=== PATIENT | male | born 1965 | race African-American/Black ===

== ENCOUNTER 2018-06-11 12:18 | Day surgery (SDC) | payer BC ==
[~2018-06-11] VITALS: Ht 182.9 cm; Wt 101.2 kg
[~2018-06-11 12:18] MED LIST: AMLO10TA6 PO; AMLO5TAB7 PO; ASPI81TA50 PO; DOXA4TAB3 PO; ENAL20TA PO; HYDR-2869 PO; HYDR25TA9 PO; HYDROmorphone 2 MG/ML VIAL IV PRN; IOHEXOL 300 MG/ML 100ML VIAL. ONE; IV RINGERS,LACTATED 1000ML 1,000 ML IV SCH; LABE100T5 PO; LIDOCAINE 1% PF 2 ML VIAL. ID PRN; LIDOCAINE 2% JELLY 6ML IN APPLICATOR. ONE; MORPHINE SULFATE 2 MG/ML VIAL. IV PRN; ONDANSETRON PF 4 MG/2 ML VIAL. IV PRN; PROCHLORPERAZINE 10 MG/2 ML VIAL. IV PRN; SPIR25TA PO; fentaNYL PF VIAL 100 MCG/2 ML VIAL IV PRN
[2018-06-11] MEDS ORDERED: fentaNYL PF VIAL 100 MCG/2 ML VIAL ONE (14:29)
[2018-06-11] MEDS ORDERED: ROCURONIUM 50 MG/5 ML VIAL. ONE (14:30)
--- NOTE | 2018-06-11 14:53 | PDOC4 ---
OPERATIVE NOTE Date: Date: Jun 11, 2018 Pre-Op Diagnosis: bladder tumor Post-Op Diagnosis: same Procedure Performed: cystoscopy, transurethral bladder tumor resection, bilateral retrograde pyelograms, bladder mitomycin instillation Surgeon: Anurag Kiran MD Anesthesia Type: general Blood Loss: 0 Specimans Obtained: bladder tumor chips Findings: 2.5 cm tumor left lateral wall of bladder. normal retrograde pyelograms Complications: none Operative Note: see dictation ANURAG KIRAN MD Jun 11, 2018 14:53
--- NOTE | 2018-06-11 14:59 | DISCH ---
DISCHARGE INSTRUCTIONS Condition on Discharge Condition on Discharge: Stable Activity After Discharge Activity Instructions for Disc: Activity as tolerated Lifting Instructions after Dis: Add. restrict see below (No lifting > 30 pounds ) Exercise Instruction after Dis: Walk 30 min, 3 x per week Driving Instructions after Dis: Do not drive today Weight Bearing Status after Di: As tolerated Diet after Discharge Diet after Discharge: Cardiac, Renal Non-Dialysis Contacting the after DC Call your doctor for: Concerns you may have Follow-Up Follow up with: Dr. Kiran in 2 weeks ANRUAG KIRAN MD Jun 11, 2018 14:59
[2018-06-11] MEDS ORDERED: ONDANSETRON PF 4 MG/2 ML VIAL. ONE (15:01)
[2018-06-11] MEDS ORDERED: DEXAMETHASONE SOD PHOS 20 MG/5 ML VIAL. ONE (15:01)
[2018-06-11] MEDS ORDERED: HYDR-971 PO (15:03)
[2018-06-11] MEDS ORDERED: OXYB10TA PO (15:03)
[2018-06-11] MEDS ORDERED: PHENYLEPHRINE in 0.9% NACL PF 1 MG/10 ML SYRINGE. IV ONE (15:04)
[2018-06-11] MEDS ORDERED: PROPOFOL 20 ML IV ONE (15:04)
[2018-06-11] MEDS ORDERED: OPIUM/BELLADONNA 30/16.2MG SUPP.RECT. PR ONE (15:30)
--- NOTE | 2018-06-11 16:28 | OP ---
DATE OF SURGERY: 06/11/2018 SURGEON: Anurag Kiran MD DIDACTIC PROGRAM IN DIETETICS DIRECTOR: None. PREOPERATIVE DIAGNOSIS: Bladder tumor. POSTOPERATIVE DIAGNOSIS: Bladder tumor. PROCEDURES PERFORMED: 1. Cystoscopy with transurethral resection of bladder tumor. 2. Bilateral retrograde pyelograms. 3. Bladder mitomycin instillation. ANESTHESIA TYPE: General. FINDINGS: A 2.5 cm tumor left lateral wall of the bladder, normal retrograde pyelograms. DESCRIPTION OF PROCEDURE: This is a 53-year-old male recently diagnosed with a bladder tumor. After discussion of risks, benefits and alternatives, he agreed to the above procedure. Informed consent was obtained. The patient was taken to the operating room and general anesthesia was induced. He was placed in dorsal lithotomy position, sterilely prepped and draped. Timeout was performed. A rigid cystoscope was advanced through the urethra and then into the bladder. There were two mild strictures in the bulbar urethra and the scope was able to advance without trauma to the urethra. The prostate appeared to be without obstruction. The bladder was then systematically inspected and there was a 2.5 cm tumor on the left lateral wall. The rest of the bladder appeared unremarkable. The right ureteral orifice was cannulated with a ureteral catheter and a retrograde pyelogram was performed, which showed normal ureter and right renal pelvis. The left ureter was then cannulated, also with normal left ureter and normal left renal pelvis without filling defects or other abnormalities. Both sides drained promptly. The scope was removed. A 24-Upper Sorbian resectoscope was then easily introduced through the urethra and into the bladder. The tumor was then resected down to muscle. Bleeding points were cauterized. The bladder was closely inspected again and there were no additional tumors noted. The bladder tumor chips were evacuated and sent as a specimen. The bladder was inspected a final time under low volume and no evidence of bleeding noted. The scope was withdrawn. A Cheek catheter was placed with drainage of clear fluid. The bladder was irrigated with return of clear fluid and no blood. 40 mg of mitomycin was then instilled into the bladder and left to dwell for 1 hour. The patient was then awakened, taken to the recovery room in stable condition. BLOOD LOSS: None. COMPLICATIONS: None. SPECIMEN: Bladder tumor chips. ANURAG KIRAN MD DR: RAI/pee JOB#: [id number] / [id number]
[2018-06-11 17:00] VITALS: BP 180/84
--- NOTE | 2018-06-16 17:10 | PATHOLOGY ---
[facility] Accession Number: [id number] . 01 Material submitted: . BLADDER TUMOR . 01 Clinical history: . Bladder tumor . 02 Diagnosis: Bladder tumor, transurethral resection: - PAPILLARY LOW GRADE UROTHELIAL CARCINOMA. SEE COMMENT. LBQ/06/15/2018 . 02 Comment: Sections of the bladder tumor transurethral resection reveal a papillary low grade urothelial carcinoma. There is no evidence of invasive carcinoma. There is focal chronic inflammation within the underlying stroma. There are a few fragments of muscular wall present which show no evidence of invasive carcinoma. The case is also examined by Dr. Conrad, who concurs with the diagnosis. (JPM/db; 06/15/18) . 02 Electronically signed: . Javier Crockett MD, Pathologist NPI- [id number] . 01 Gross description: . Received in formalin "Regis Holland, bladder tumor" are friable molina, papilliferous, and glistening tissue fragments, 1.2 x 1.0 x 0.6 cm in aggregate. The specimen is entirely submitted as A1. (JS; 06/12/2018) JBR/JBR . 02 Pathologist provided ICD-10: C67.9 . 02 CPT . 739390 Specimen Comment: A courtesy copy of this report has been sent to Specimen Comment: [phone], . Specimen Comment: Report sent to and Performed at: 01 [facility] [address], [place] [id number] MD Fer Hidalgo MD Phone: [phone] Performed at: 02 [facility] [id number] MD Javier Crockett MD Phone: [phone]
--- NOTE | 2018-06-17 09:25 | RAD ---
Retrograde pyelogram 06/11/2018 CLINICAL HISTORY: Hematuria. Fluoroscopic assistance was provided during a retrograde pyelogram. 4 digital spot radiographs were obtained. The total fluoroscopic time is not listed. These images demonstrate retrograde injection of both ureters to include the intrarenal collecting systems with contrast. The ureters and intrarenal collecting systems are within normal limits bilaterally. No filling defect is seen. IMPRESSION: Negative study. Electronically signed by: Judson Joseph MD (06/17/2018 9:21 AM) [id number]
== END 2018-06-11 17:33 | disposition home or self-care (01) ==
LOC: SURG 12:18
PROVIDERS: ATTEND Urology
DX: C67.2 Malignant neoplasm of lateral wall of bladder (principal); I10 Essential (primary) hypertension; Z88.8 Allergy status to other drugs, medicaments and biological substances; Z79.899 Other long term (current) drug therapy; Z82.49 Family history of ischemic heart disease and other diseases of the circulatory system; Z84.1 Family history of disorders of kidney and ureter
CPT/HCPCS: 51720; 52235; 74420; 88307; A7015; C1769; J0690; J0780; J1100; J2370; J2405; J2704; J3010; J9280; Q9967

== ENCOUNTER → 2020-08-01 | Outpatient (CLI) | payer BC ==
[2018-07-04 11:00] VITALS: BP 129/83
[~2020-08-01] MED LIST changes: +AMLO-186 PO; +AMLO-187 PO; -AMLO10TA6 PO; -AMLO5TAB7 PO; +ATOR20TA58 PO; +CARV6.2511 PO; -ENAL20TA PO; +ENAL20TA10 PO; +HYDR-2145 PO; +HYDR-2868 PO; +HYDR-3164 PO; -HYDR25TA9 PO; -HYDROmorphone 2 MG/ML VIAL IV PRN; -IOHEXOL 300 MG/ML 100ML VIAL. ONE; -IV RINGERS,LACTATED 1000ML 1,000 ML IV SCH; -LIDOCAINE 1% PF 2 ML VIAL. ID PRN; -LIDOCAINE 2% JELLY 6ML IN APPLICATOR. ONE; -MORPHINE SULFATE 2 MG/ML VIAL. IV PRN; -ONDANSETRON PF 4 MG/2 ML VIAL. IV PRN; +OXYB10TA26 PO; +OXYB10TA7 PO; -PROCHLORPERAZINE 10 MG/2 ML VIAL. IV PRN; +SULF1TAB24 PO; -fentaNYL PF VIAL 100 MCG/2 ML VIAL IV PRN
--- NOTE | 2020-08-01 17:39 | KCIC ---
Examination: Ultrasound kidneys HISTORY: History of renal lesion COMPARISON: CT from 07/03/2018. FINDINGS: The right kidney measures 10.2 x 6.0 x 5.1 cm. The left kidney measures 10.0 x 5.6 x 7.1 cm. There is a cystic structure identified in the right kidney measuring 1.1 cm with some echogenicities within likely complex cyst. Somewhat echogenic appearing bilateral kidneys. Urinary bladder is mildly distended. IMPRESSION: 1. A 1.1 cm cyst containing echogenicity identified probably a complex cyst or cystic appearing debris. Close interval follow-up examination is recommended to document stability. 2. Echogenic appearing bilateral kidneys could be due to medical renal disease. Electronically signed by: Javan Leavitt MD (08/01/2020 5:36 PM) [id number]
== END ==
LOC: KCIC US 14:09
PROVIDERS: ATTEND Family Medicine
DX: N28.1 Cyst of kidney, acquired (principal); N28.89 Other specified disorders of kidney and ureter; N32.89 Other specified disorders of bladder
CPT/HCPCS: 76770